=== PATIENT | female | born 1975 | race Hispanic/Latino ===

== ENCOUNTER 2020-04-10 06:32 | Day surgery (SDC) | payer OTHER ==
[2020-04-03 10:59] LABS: BASOPHILS % (AUTO) 0.6 % (0.0-5.0); HEMATOCRIT 36.1 % (36-48); LYMPHOCYTES % (AUTO) 39.2 % (21.0-51.0); MEAN CORPUSCULAR HEMOGLOBIN 29.8 pg (27.0-33.0); MEAN CORPUSCULAR HGB CONC 33.2 g/dL (32.0-36.0); MEAN CORPUSCULAR VOLUME 89.6 fL (79-99); MONOCYTES % (AUTO) 7.2 % (3.0-13.0); NEUTROPHILS % (AUTO) 50.8 % (40.0-77.0); PLATELET COUNT (AUTO) 261 K/uL (130-400); RED BLOOD CELL COUNT(AUTO) 4.03 MIL/uL (4.00-5.50); RED CELL DISTRIBUTION WIDTH 12.9 % (11.0-15.5); WHITE BLOOD COUNT (AUTO) 6.4 K/uL (4.8-10.8)
[~2020-04-10] VITALS: Ht 160 cm; Wt 65.8 kg
[2020-04-10] VITALS (16 sets, daily range): BP systolic 93–112; BP diastolic 56–76
[2020-04-10] MEDS ORDERED: LACTATED RINGERS 1000ML 1,000 ML IV ONE (06:40)
[2020-04-10] MEDS ORDERED: SUCCINYLCHOLINE CHLORIDE 20 MG/ML 10 ML VIAL ONE (06:59)
[2020-04-10] MEDS ORDERED: MIDAZOLAM HCL 1 MG/ML 2ML VIAL ONE (06:59)
[2020-04-10] MEDS ORDERED: LIDOCAINE PF 2% 5ML ABBOJECT ONE (06:59)
[2020-04-10] MEDS ORDERED: DEXAMETHASONE SOD PHOSPHATE 10MG/ML 1ML VIAL ONE (06:59)
[2020-04-10] MEDS ORDERED: ONDANSETRON HCL 4 MG/2 ML VIAL ONE (06:59)
[2020-04-10] MEDS ORDERED: GLYCOPYRROLATE 1 MG/5 ML SYRINGE ONE (06:59)
[2020-04-10] MEDS ORDERED: LACTATED RINGERS 1000ML 1,000 ML IV SCH (07:00)
[2020-04-10] MEDS ORDERED: PROPOFOL 10 MG/ML 20ML VIAL IV ONE (07:00)
[2020-04-10] MEDS ORDERED: NEOSTIGMINE 5MG/5ML SYR IV ONE (07:00)
[2020-04-10] MEDS: CALDOLOR 800MG+NS 250ML 250 ML IV SCH ×2 (07:00→08:00)
[2020-04-10] MEDS ORDERED: ROCURONIUM 10MG/1ML SYR 10 MG/ML ML ONE (07:00)
[2020-04-10] MEDS ORDERED: FENTANYL CITRATE PF 50 MCG/1 ML 2ML VIAL ONE ×2 (07:01→07:41)
[2020-04-10] MEDS: CEFAZOLIN SODIUM 1 GM VIAL ONE ×2 (07:11→07:40)
--- NOTE | 2020-04-10 09:20 | NUR ---
PATIENT ARRIVED TO DAY PATIENT VIA STRETCHER BY ROBERT MCKEON RN. PATIENT [id number], RESPIRATIONS UNLABORED, VITAL SIGNS STABLE. DENIES ANY PAIN AT THIS TIME. [place] PAD IN PLACE WITH MODERATE AMOUNT OF BRIGHT RED BLOOD NOTED.
--- NOTE | 2020-04-10 09:50 | NUR ---
PATIENT DISCHARGED FROM FACILITY VIA WHEELCHAIR BY ESTHELA AWAN RN AND ASSISTED INTO PRIVATE VEHICLE DRIVEN BY DAUGHTER.
== END 2020-04-10 09:50 | disposition home or self-care (01) ==
LOC: DAH 06:32
PROVIDERS: ATTEND Obstetrics & Gynecology
DX: N94.6 Dysmenorrhea, unspecified (principal); D25.0 Submucous leiomyoma of uterus; Z20.828 Contact with and (suspected) exposure to other viral communicable diseases
CPT/HCPCS: 36415 ×2; 58558; 84703; 85025; 86850 ×2; 86900 ×2; 86901 ×2; A4351; A4355; A6260; C9803; J0330; J0690; J1100; J1741; J2001; J2250; J2405; J2704; J2710; J3010 ×2; J3490; J7030 ×2; J7120; U0003

== ENCOUNTER 2020-04-30 11:41 | Emergency (ER) | payer OTHER ==
[2020-04-30 12:50] LABS: BASOPHILS % (AUTO) 0.8 % (0.0-5.0); EOSINOPHILS % (AUTO) 2.3 % (0.0-8.0); HEMATOCRIT 36.7 % (36-48); MEAN CORPUSCULAR HEMOGLOBIN 29.5 pg (27.0-33.0); MEAN CORPUSCULAR VOLUME 89.5 fL (79-99); MONOCYTES % (AUTO) 6.3 % (3.0-13.0); NEUTROPHILS % (AUTO) 52.1 % (40.0-77.0); PLATELET COUNT (AUTO) 276 K/uL (130-400); RED CELL DISTRIBUTION WIDTH 12.7 % (11.0-15.5); WHITE BLOOD COUNT (AUTO) 6.5 K/uL (4.8-10.8)
[2020-04-30 13:01] LABS: CREATININE 0.9 mg/dL (0.5-1.5); POTASSIUM 3.5 mmol/L (3.5-5.1)
[2020-04-30 13:11] LABS: BILIRUBIN,TOTAL 0.5 mg/dL (0.2-1.0)
== END 2020-04-30 13:16 | disposition home or self-care (01) ==
LOC: EDH 11:41
DX: N93.9 Abnormal uterine and vaginal bleeding, unspecified (principal)
CPT/HCPCS: 36415; 76856; 80053; 84702; 85025

== ENCOUNTER 2020-06-13 21:30 | Emergency (ER) | payer OTHER ==
[2020-06-13] MEDS ORDERED: IBUPROFEN 600 MG TABLET ONE (21:54)
[2020-06-13] MEDS ORDERED: ACETAMINOPHEN EXTRA STRENGTH 500 MG TABLET ONE (21:54)
[2020-06-13] MEDS ORDERED: ONDANSETRON ODT 4 MG TAB ONE (22:14)
[2020-06-13 22:36] LABS: RAPID GROUP A STREP NEGATIVE (NEGATIVE)
[2020-06-13] MEDS ORDERED: ACETAMINOPHEN ELIXIR 650 MG/20.3 ML UDCUP ONE (23:14)
[2020-06-13] MEDS ORDERED: AZITHROMYCIN 250 MG TABLET PO ONE (23:15)
[2020-06-13] MEDS ORDERED: KETOROLAC TROMETHAMINE 60 MG/2 ML VIAL ONE (23:15)
[2020-06-13] MEDS ORDERED: DEXAMETHASONE 4 MG TAB ONE (23:37)
== END 2020-06-13 23:42 | disposition home or self-care (01) ==
LOC: EDH 21:30
DX: U07.1 COVID-19 (principal); R11.10 Vomiting, unspecified
CPT/HCPCS: 87426; 87804 ×2; 87880; 96372 ×2; 99284; J1885; J8540